=== PATIENT | female | born 1965 | race Caucasian/White ===

== ENCOUNTER 2024-01-14 15:41 | Observation (INO) | payer OTHER ==
[2024-01-14 16:15] LABS: Absolute Neutrophil Ct (ANC) 8.06 x10^3/uL (1.56-6.13); BASOPHIL % 0.2 % (0.1-1.2); Basophil (Absolute #) 0.02 x10^3/uL (0.01-0.08); Eosinophil % 0.3 % (0.7-5.8); Eosinophil (Absolute #) 0.03 x10^3/uL (0.04-0.36); Hematocrit 37.9 % (34.1-44.9); Hemoglobin 13.1 g/dL (11.2-15.7); IMMATURE GRAN # 0.03 x10^3u/L (0.001-0.031); IMMATURE GRAN % 0.3 % (0.001-0.429); Lymphocyte (Absolute #) 1.71 x10^3/uL (1.18-3.74); Mean Cell Volume 87.7 fL (79.4-94.8); Mean Corpuscular Hemoglobin 30.3 pg (25.6-32.2); Mean Corpuscular Hgb Concent. 34.6 g/dL (32.2-35.5); Mean Platelet Volume 10.2 fL (9.4-12.3); Monocyte (Absolute #) 0.87 x10^3/uL (0.24-0.86); Monocytes % 8.1 % (4.7-12.5); Neutrophil % 75.1 % (34.0-71.1); Platelet Count 281 x10^3/uL (182-369); Red Blood Count 4.32 x10^6/uL (3.93-5.22); Red Cell Distribution Width 12.7 % (11.7-14.4); White Blood Count 10.7 x10^3/uL (3.98-10.04)
[2024-01-14] MEDS ORDERED: DUONEB 0.5-3 MG/3 ml Neb IH ONE (16:17)
[2024-01-14] MEDS: DUONEB 0.5-3 MG/3 ml Neb IH ONE (16:18)
[2024-01-14 16:20] LABS: ALBUMIN 4.5 g/dL (3.5-5.0); BILIRUBIN,TOTAL 1.4 mg/dL (0.2-1.3); Calcium 9.3 mg/dL (8.4-10.2); Creatinine 1 0.83 mg/dL (0.52-1.04); EST GLOMERULAR FILTRATION RATE 81.7 ML/MIN; MAGNESIUM 2.1 mg/dL (1.6-2.3); Total Protein 8.5 g/dL (6.3-8.2)
[2024-01-14 16:24] LABS: Potassium 2.4 mmol/L (3.5-5.1)
--- NOTE | 2024-01-14 16:24 | ERPHSYRPT ---
- History of Present Illness Time Seen by Provider: 01/14/24 16:07 Source: patient Exam Limitations: no limitations Patient Subjective Stated Complaint: C/O cough for a week Triage Nursing Assessment: Patient ambulated back to ER. She is alert and oriented; anxious. Rapid talking, no SOB. She has a forceful, dry, non- productive cough. Skin is warm to touch; afebrile at this time. CASANDRA CHEN. Physician History: 58 years old female with history of tachyarrhythmias on metoprolol, hypertension presented in the ER with cough congestion symptoms for almost 1 week. Patient reports she has a dry hacking cough and feels gurgling sensation in the chest but is unable to cough it out. Patient denies any chest pain but noticed some palpitations/racing of the heart. Patient also reports subjective feeling of fever and chills which improves with taking Tylenol ibuprofen. Denies any Allergies/Adverse Reactions: No Known Drug Allergies Allergy (Verified 01/14/24 15:45) Home Medications: Hydrochlorothiazide 25 mg [hydroDIURIL 25 MG] 25 mg PO DAILY 01/14/24 [History] Metoprolol Tartrate [Lopressor] 100 mg PO BID 01/14/24 [History] Hx Tetanus, Diphtheria Vaccination/Date Given: Yes Hx Influenza Vaccination/Date Given: No Hx Pneumococcal Vaccination/Date Given: No Immunizations Up to Date: Yes Travel Risk - International Travel Have you traveled outside of the country in past 3 weeks: No - Emerging Infectious Disease Are you exhibiting symptoms associated with any current EIDs: Yes Symptoms: Cough: New Onset, Fever, Headaches/Body Aches/ - Past Medical History Pertinent Past Medical History: Yes Neurological History: No Pertinent History ENT History: No Pertinent History Cardiac History: Hypertension Respiratory History: No Pertinent History Endocrine Medical History: Other Musculoskeletal History: Fractures Psycho-Social History: Anxiety, Bipolar, Depression, Other Other Medical History: "Electrical heart irregularities", thyroid goiter, PTSD - Past Surgical History Past Surgical History: Yes Cardiac: No Pertinent History Gastrointestinal: No Pertinent History Female Surgical History: Hysterectomy Other Surgical History: partial thyroid removal - Social History Smoking Status: Former smoker Drug Use: none - Social Determinants of Health Will the patient participate in the screening: Yes Do you worry about a steady place to live?: No Do you have any problems with any of the following?: No known problems In the past 12 months,have you had to go without utilities?: No Transportation Issues: No Has anyone in your support network made you feel unsafe?: No Have you or anyone in your house had to go without enough: No - Nursing Vital Signs Nursing Vital Signs: Initial Vital Signs Temperature 98.9 F 01/14/24 15:41 Pain Scale Pain Intensity 0 - Physical Exam SpO2: 96 - Course EKG Interpreted by Me: RATE (94), Sinus Rhythm, NORMAL AXIS, prolonged QT interval, Non-specific ST Changes Ordered Tests: Active Orders 24 hr Category Date Time Status Telemetry q4h Care 01/14/24 16:36 Active CHEST 1 VIEW (PORTABLE) Stat Exams 01/14/24 15:59 Completed BLOOD CULTURE Stat Lab 01/14/24 17:22 Ordered CBC W DIFF Stat Lab 01/14/24 16:00 Completed CMP Stat Lab 01/14/24 16:00 Completed Lactic Acid Stat Lab 01/14/24 16:25 Completed MAGNESIUM Stat Lab 01/14/24 16:00 Completed NT PRO BNPII Stat Lab 01/14/24 16:00 Completed TROPONIN Q4H Lab 01/14/24 16:00 Completed TROPONIN Q4H Lab 01/14/24 20:15 Ordered TROPONIN Q4H Lab 01/15/24 00:15 Ordered Respiratory Therapy Assessment DAILY RT 01/14/24 16:22 Active Transfer Order Routine Transfer 01/14/24 Ordered Medication Summary Generic Name Dose Route Start Last Admin Trade Name Freq PRN Reason Stop Dose Admin Potassium Chloride 20 meq in 100 mls @ 50 mls/hr 01/14/24 16:45 01/14/24 16:41 Potassium Chloride 20 Meq In Water 100ml IV 01/14/24 20:44 50 mls/hr Q2H EVELIA Administration Sodium Chloride 1,000 mls @ 125 mls/hr 01/14/24 16:45 01/14/24 16:41 Sodium Chloride 0.9% 1000 Ml IV 02/13/24 16:44 125 mls/hr .Q8H EVELIA Administration Azithromycin 500 mg in 250 mls @ 250 mls/hr 01/14/24 17:21 01/14/24 17:38 Zithromax 500 Mg/ 250 Ml Nacl Premix IV 01/14/24 18:20 250 mls/hr STAT STA 250 mls/hr Administration Ceftriaxone Sodium 2 gm in 100 mls @ 200 mls/hr 01/14/24 17:21 01/14/24 17:37 Rocephin 2 Gm/100 Ml Nacl IV 01/14/24 17:50 200 mls/hr STAT ONE 200 mls/hr Administration Discontinued Medications Generic Name Dose Route Start Last Admin Trade Name Otoniel PRN Reason Stop Dose Admin Albuterol/Ipratropium 3 ml 01/14/24 16:07 01/14/24 16:18 Ipratropium/Albuterol Sulfate 3 Ml Ampul.Neb IH 01/14/24 16:08 3 ml STAT ONE Administration Albuterol/Ipratropium Confirm 01/14/24 16:17 Ipratropium/Albuterol Sulfate 3 Ml Ampul.Neb Administered 01/14/24 16:18 Dose 3 ml IH .STK-MED ONE Azithromycin Confirm 01/14/24 17:36 Zithromax 500 Mg/ 250 Ml Nacl Premix Administered 01/14/24 17:37 Dose 500 mg in 250 mls @ ud IV .STK-MED ONE Ceftriaxone Sodium Confirm 01/14/24 17:36 Rocephin 2 Gm/100 Ml Nacl Administered 01/14/24 17:37 Dose 2 gm in 100 mls @ ud IV .STK-MED ONE Potassium Chloride 40 meq 01/14/24 16:36 01/14/24 16:41 Potassium Chloride Tab 10 Meq Tab PO 01/14/24 16:37 40 meq STAT ONE Administration Potassium Chloride Confirm 01/14/24 16:40 Potassium Chloride Tab 10 Meq Tab Administered 01/14/24 16:41 Dose 40 meq .ROUTE .STK-MED ONE Lab/Rad Data: Laboratory Result Diagrams 01/14/24 16:00 01/14/24 16:00 Laboratory Results 01/14/24 01/14/24 01/14/24 Range/Units 16:25 16:00 16:00 WBC (3.98-10.04) x10^3/uL RBC (3.93-5.22) x10^6/uL Hgb (11.2-15.7) g/dL Hct (34.1-44.9) % MCV (79.4-94.8) fL MCH (25.6-32.2) pg MCHC (32.2-35.5) g/dL RDW (11.7-14.4) % Plt Count (182-369) x10^3/uL MPV (9.4-12.3) fL Gran % (34.0-71.1) % Immature Gran % (Auto) (0.001-0.429) % Nucleat RBC Rel Count (0.00-0.2) % Eos # (Auto) (0.04-0.36) x10^3/uL Immature Gran # (Auto) (0.001-0.031) x10^3u/L Absolute Lymphs (auto) (1.18-3.74) x10^3/uL Absolute Monos (auto) (0.24-0.86) x10^3/uL Absolute Nucleated RBC (0.00-0.012) x10^3u/L Lymphocytes % (19.3-51.7) % Monocytes % (4.7-12.5) % Eosinophils % (0.7-5.8) % Basophils % (0.1-1.2) % Absolute Granulocytes (1.56-6.13) x10^3/uL Basophils # (0.01-0.08) x10^3/uL Sodium (135-145) mmol/L Potassium (3.5-5.1) mmol/L Chloride (98-107) mmol/L Carbon Dioxide (22-30) mmol/L Anion Gap (5-15) MEQ/L BUN (7-17) mg/dL Creatinine (0.52-1.04) mg/dL Estimated GFR ML/MIN Glucose (74-106) mg/dL Lactic Acid 1.3 (0.4-2.0) Calcium (8.4-10.2) mg/dL Magnesium (1.6-2.3) mg/dL Total Bilirubin (0.2-1.3) mg/dL AST (14-36) U/L ALT (0-35) U/L Alkaline Phosphatase (38-126) U/L Troponin I < 0.012 (0.000-0.033) ng/mL NT-Pro-B Natriuret Pep 146 (<300) pg/mL Serum Total Protein (6.3-8.2) g/dL Albumin (3.5-5.0) g/dL Influenza Type A Ag (NEGATIVE) Influenza Type B Ag (NEGATIVE) RSV (PCR) (NEGATIVE) SARS-CoV-2 (PCR) (NEGATIVE) 01/14/24 01/14/24 01/14/24 Range/Units 16:00 16:00 15:58 WBC 10.7 H (3.98-10.04) x10^3/uL RBC 4.32 (3.93-5.22) x10^6/uL Hgb 13.1 (11.2-15.7) g/dL Hct 37.9 (34.1-44.9) % MCV 87.7 (79.4-94.8) fL MCH 30.3 (25.6-32.2) pg MCHC 34.6 (32.2-35.5) g/dL RDW 12.7 (11.7-14.4) % Plt Count 281 (182-369) x10^3/uL MPV 10.2 (9.4-12.3) fL Gran % 75.1 H (34.0-71.1) % Immature Gran % (Auto) 0.3 (0.001-0.429) % Nucleat RBC Rel Count 0.0 (0.00-0.2) % Eos # (Auto) 0.03 L (0.04-0.36) x10^3/uL Immature Gran # (Auto) 0.03 (0.001-0.031) x10^3u/L Absolute Lymphs (auto) 1.71 (1.18-3.74) x10^3/uL Absolute Monos (auto) 0.87 H (0.24-0.86) x10^3/uL Absolute Nucleated RBC 0.00 (0.00-0.012) x10^3u/L Lymphocytes % 16.0 L (19.3-51.7) % Monocytes % 8.1 (4.7-12.5) % Eosinophils % 0.3 L (0.7-5.8) % Basophils % 0.2 (0.1-1.2) % Absolute Granulocytes 8.06 H (1.56-6.13) x10^3/uL Basophils # 0.02 (0.01-0.08) x10^3/uL Sodium 136 (135-145) mmol/L Potassium 2.4 L* (3.5-5.1) mmol/L Chloride 92 L (98-107) mmol/L Carbon Dioxide 31 H (22-30) mmol/L Anion Gap 15.0 (5-15) MEQ/L BUN 17 (7-17) mg/dL Creatinine 0.83 (0.52-1.04) mg/dL Estimated GFR 81.7 ML/MIN Glucose 121 H (74-106) mg/dL Lactic Acid (0.4-2.0) Calcium 9.3 (8.4-10.2) mg/dL Magnesium 2.1 (1.6-2.3) mg/dL Total Bilirubin 1.40 H (0.2-1.3) mg/dL AST 37 H (14-36) U/L ALT 23 (0-35) U/L Alkaline Phosphatase 83 (38-126) U/L Troponin I (0.000-0.033) ng/mL NT-Pro-B Natriuret Pep (<300) pg/mL Serum Total Protein 8.5 H (6.3-8.2) g/dL Albumin 4.5 (3.5-5.0) g/dL Influenza Type A Ag NEGATIVE (NEGATIVE) Influenza Type B Ag NEGATIVE (NEGATIVE) RSV (PCR) NEGATIVE (NEGATIVE) SARS-CoV-2 (PCR) NEGATIVE (NEGATIVE) - Progress Progress: improved, re-examined Air Movement: fair Progress Note: 01/14/24 17:23 58 years old is evaluated in the ER for cough congestion symptoms for 1 week with progressive worsening and also having some palpitations. Patient is having inconsistent PVCs on the EKG but no ST elevations. She is given DuoNeb, on reevaluation she is feeling better but her oxygen is dropping in upper 80s, placed on 2 L oxygen with saturation in mid 90s now. Chest x-ray showed focal haziness/opacities which I believe patient is developing pneumonia. Workup otherwise showed white count of 10, normal lactate, chemistries with potassium of 2.4 and magnesium of 2.1. Patient is started on oral and IV potassium replacement. I believe patient would benefit with observation admission. She is also given a dose of Rocephin and Zithromax. Discussed with Dr. Marte and patient is being admitted. Shared the results of workup with patient and family and plan of admission which they understand and agree. Blood Culture(s) Obtained: Yes Antibiotics given: Yes Discussed with Dr.: Other (Dr. Marte) Will see patient in: hospital (observation) Counseled pt/family regarding: lab results, diagnosis, rad results Medical Desision Making - Independent Historian Additional History obtained from: Child - Discussion of managment Care discussed with:: hospitalist Reviewed:: Test results Agreed on:: Treatment plan, place in obs Will see patient: in hospital - Diagnostic Testing Diagnostic test were ordered, analyzed, and reviewed by me: Yes Radiological Interpretation: Reviewed by me - Risk of complications The pt has a mod risk of morbidity or mortality based on: Need for prescription drug management The pt has a high risk of morbidity or mortality based on: Decision regarding hospitilization or escalation of hosp level of care - Departure Departure Disposition: Observation Clinical Impression: Hypokalemia, PVCs (premature ventricular contractions), Pneumonia Condition: Stable Critical Care Time: No Referrals: DOCTOR,NO FAMILY [Primary Care Provider] - Follow up/PCP as directed
[2024-01-14 16:34] LABS: INFLUENZA A NEGATIVE (NEGATIVE); INFLUENZA B NEGATIVE (NEGATIVE); RESPIRATORY SYNCTIAL VIRUS NEGATIVE (NEGATIVE); SARS-CoV-2 Xpert Express NEGATIVE (NEGATIVE)
[2024-01-14] MEDS ORDERED: Sodium Chloride 0.9% 1000 ML 1,000 ML ONE ×2 (16:40→23:21)
[2024-01-14] MEDS ORDERED: Klor Con ONE (16:40)
[2024-01-14] MEDS: POTASSIUM CHLORIDE 20 mEq IN WATER 100ML 20 MEQ/100 ML BAG IV SCH (16:41)
[2024-01-14] MEDS: Sodium Chloride 0.9% 1000 ML 1,000 ML IV SCH (16:41)
[2024-01-14] MEDS: Klor Con PO ONE ×2 (16:41→21:58)
--- NOTE | 2024-01-14 17:15 | XRAY ---
Indication: Cough. Comparison: None Portable chest demonstrates subtle hazy right base interstitial alveolar opacities. Remaining heart and lungs normal with a few incidental tiny calcified granulomas. Bony thorax intact.
[2024-01-14] MEDS ORDERED: ROCEPHIN 2 GM/100 ML NACL 2 GM/100 ML IVPB IV ONE (17:36)
[2024-01-14] MEDS ORDERED: Zithromax 500 MG/ 250 ML NaCl Premix 500 MG/250 ML IVPB IV ONE (17:36)
[2024-01-14] MEDS: ROCEPHIN 2 GM/100 ML NACL 2 GM/100 ML IVPB IV ONE (17:37)
[2024-01-14] MEDS: Zithromax 500 MG/ 250 ML NaCl Premix 500 MG/250 ML IVPB IV STA (17:38)
--- NOTE | 2024-01-14 21:17 | PCM.HP ---
History of Present Illness - Chief Complaint Chief Complaint: Hypokalemia, PNE, PVC Date: 01/14/24 History of Present Illness: Ms. RIVERA is a 58 year old female with a past medical history significant for hypertension and tachyarrhythmia who presents to the hospital with complaints of cough and palpitations. She was found to have multiple PVCs and her initial labs were notable for a potassium of 2.4. She takes HCTZ for her blood pressure and has also noted some diarrhea recently. She has been given IV/PO potassium replacement and has been recommended for admission. Her CXR demonstrated a right lower lobe infiltrate and she has been started on antibiotics. No fever/chills. No chest pain or shortness of breath, just a deep painful cough. No current nausea, vomiting or diarrhea. No dysuria, hematuria or urinary frequency. - Review of Systems Constitutional: No Fever, No Chills Eyes: No Vision Changes, No Double Vision Ears, Nose, & Throat: No Nose Discharge, No Sinus Drainage Respiratory: Cough, No Orthopnea, No Short Of Breath Cardiac: Palpitations, No Chest Pain Abdominal/Gastrointestinal: Nausea, Vomiting, Diarrhea, No Abdominal Pain Genitourinary Symptoms: No Dysuria, No Frequency, No Hematuria Musculoskeletal: No Arthralgias Skin: No Rash Neurological: No Dizziness, No Lethargy Psychological: No Suicidal Ideations Endocrine: No Polyuria, No Polydipsia Hematologic/Lymphatic: No Easy Bleeding Medications & Allergies Home Medications: Home Medication List Hydrochlorothiazide 25 mg [hydroDIURIL 25 MG] 25 mg PO DAILY 01/14/24 [History Confirmed 01/14/24] Metoprolol Tartrate [Lopressor] 100 mg PO BID 01/14/24 [History Confirmed 01/14/24] Allergies/Adverse Reactions: Allergies Allergy/AdvReac Type Severity Reaction Status Date / Time No Known Drug Allergies Allergy Verified 01/14/24 15:45 - Past Medical History Past Medical History: Yes Neurological History: No Pertinent History ENT History: No Pertinent History Cardiac History: Hypertension Respiratory History: No Pertinent History Endocrine Medical History: Other Musculoskelatal History: Fractures GI Medical History: No Pertinent History History: No Pertinent History Pyscho-Social History: Anxiety, Bipolar, Depression, Other Reproductive Disorders: No Pertinent History Comment: "Electrical heart irregularities", thyroid goiter, PTSD - Past Surgical History Past Surgical History: Yes Cardiac History: No Pertinent History GI Surgical History: No Pertinent History Female Surgical History: Hysterectomy Other Surgical History: partial thyroid removal - Social History Smoking Status: Former smoker Alcohol: None Drug Use: none - Social Determinants of Health Will the patient participate in the screening: Yes Do you worry about a steady place to live?: No Do you have any problems with any of the following?: No known problems In the past 12 months,have you had to go without utilities?: No Have you or anyone in your house had to go without enough: No Transportation Issues: No Has anyone in your support network made you feel unsafe?: No Does the patient want assistance with any of the above?: No - Physical Exam Vital Signs: Vital Signs - 24 hr Temp Pulse Resp BP BP Pulse Ox 01/14/24 20:00 99.4 F 94 H 16 109/74 94 L 01/14/24 19:52 94 H 16 94 L 01/14/24 19:35 99.4 F 89 18 109/74 93 L 01/14/24 18:13 89 100/66 95 01/14/24 17:48 96 01/14/24 17:00 90 16 115/82 95 01/14/24 16:30 88 16 107/84 93 L 01/14/24 16:22 88 16 95 01/14/24 16:00 89 19 146/91 93 L 01/14/24 15:47 90 16 138/103 96 01/14/24 15:41 98.9 F General Appearance: no apparent distress Neurologic Exam: alert Ears, Nose, Throat Exam: dry mucous membranes Neck Exam: supple Respiratory Exam: No respiratory distress Cardiovascular Exam: regular rate/rhythm Gastrointestinal/Abdomen Exam: soft Extremity Exam: No pedal edema, No swelling Skin Exam: normal color, No rash Results - Labs Lab/Micro Results: Lab Results-Last 24 Hours 01/14/24 01/14/24 01/14/24 Range/Units 15:58 16:00 16:00 WBC 10.7 H (3.98-10.04) x10^3/uL RBC 4.32 (3.93-5.22) x10^6/uL Hgb 13.1 (11.2-15.7) g/dL Hct 37.9 (34.1-44.9) % MCV 87.7 (79.4-94.8) fL MCH 30.3 (25.6-32.2) pg MCHC 34.6 (32.2-35.5) g/dL RDW 12.7 (11.7-14.4) % Plt Count 281 (182-369) x10^3/uL MPV 10.2 (9.4-12.3) fL Gran % 75.1 H (34.0-71.1) % Immature Gran % (Auto) 0.3 (0.001-0.429) % Nucleat RBC Rel Count 0.0 (0.00-0.2) % Eos # (Auto) 0.03 L (0.04-0.36) x10^3/uL Immature Gran # (Auto) 0.03 (0.001-0.031) x10^3u/L Absolute Lymphs (auto) 1.71 (1.18-3.74) x10^3/uL Absolute Monos (auto) 0.87 H (0.24-0.86) x10^3/uL Absolute Nucleated RBC 0.00 (0.00-0.012) x10^3u/L Lymphocytes % 16.0 L (19.3-51.7) % Monocytes % 8.1 (4.7-12.5) % Eosinophils % 0.3 L (0.7-5.8) % Basophils % 0.2 (0.1-1.2) % Absolute Granulocytes 8.06 H (1.56-6.13) x10^3/uL Basophils # 0.02 (0.01-0.08) x10^3/uL Sodium 136 (135-145) mmol/L Potassium 2.4 L* (3.5-5.1) mmol/L Chloride 92 L (98-107) mmol/L Carbon Dioxide 31 H (22-30) mmol/L Anion Gap 15.0 (5-15) MEQ/L BUN 17 (7-17) mg/dL Creatinine 0.83 (0.52-1.04) mg/dL Estimated GFR 81.7 ML/MIN Glucose 121 H (74-106) mg/dL Lactic Acid (0.4-2.0) Calcium 9.3 (8.4-10.2) mg/dL Magnesium 2.1 (1.6-2.3) mg/dL Total Bilirubin 1.40 H (0.2-1.3) mg/dL AST 37 H (14-36) U/L ALT 23 (0-35) U/L Alkaline Phosphatase 83 (38-126) U/L Troponin I (0.000-0.033) ng/mL NT-Pro-B Natriuret Pep (<300) pg/mL Serum Total Protein 8.5 H (6.3-8.2) g/dL Albumin 4.5 (3.5-5.0) g/dL Influenza Type A Ag NEGATIVE (NEGATIVE) Influenza Type B Ag NEGATIVE (NEGATIVE) RSV (PCR) NEGATIVE (NEGATIVE) SARS-CoV-2 (PCR) NEGATIVE (NEGATIVE) 01/14/24 01/14/24 01/14/24 Range/Units 16:00 16:00 16:25 WBC (3.98-10.04) x10^3/uL RBC (3.93-5.22) x10^6/uL Hgb (11.2-15.7) g/dL Hct (34.1-44.9) % MCV (79.4-94.8) fL MCH (25.6-32.2) pg MCHC (32.2-35.5) g/dL RDW (11.7-14.4) % Plt Count (182-369) x10^3/uL MPV (9.4-12.3) fL Gran % (34.0-71.1) % Immature Gran % (Auto) (0.001-0.429) % Nucleat RBC Rel Count (0.00-0.2) % Eos # (Auto) (0.04-0.36) x10^3/uL Immature Gran # (Auto) (0.001-0.031) x10^3u/L Absolute Lymphs (auto) (1.18-3.74) x10^3/uL Absolute Monos (auto) (0.24-0.86) x10^3/uL Absolute Nucleated RBC (0.00-0.012) x10^3u/L Lymphocytes % (19.3-51.7) % Monocytes % (4.7-12.5) % Eosinophils % (0.7-5.8) % Basophils % (0.1-1.2) % Absolute Granulocytes (1.56-6.13) x10^3/uL Basophils # (0.01-0.08) x10^3/uL Sodium (135-145) mmol/L Potassium (3.5-5.1) mmol/L Chloride (98-107) mmol/L Carbon Dioxide (22-30) mmol/L Anion Gap (5-15) MEQ/L BUN (7-17) mg/dL Creatinine (0.52-1.04) mg/dL Estimated GFR ML/MIN Glucose (74-106) mg/dL Lactic Acid 1.3 (0.4-2.0) Calcium (8.4-10.2) mg/dL Magnesium (1.6-2.3) mg/dL Total Bilirubin (0.2-1.3) mg/dL AST (14-36) U/L ALT (0-35) U/L Alkaline Phosphatase (38-126) U/L Troponin I < 0.012 (0.000-0.033) ng/mL NT-Pro-B Natriuret Pep 146 (<300) pg/mL Serum Total Protein (6.3-8.2) g/dL Albumin (3.5-5.0) g/dL Influenza Type A Ag (NEGATIVE) Influenza Type B Ag (NEGATIVE) RSV (PCR) (NEGATIVE) SARS-CoV-2 (PCR) (NEGATIVE) 01/14/24 Range/Units 20:30 WBC (3.98-10.04) x10^3/uL RBC (3.93-5.22) x10^6/uL Hgb (11.2-15.7) g/dL Hct (34.1-44.9) % MCV (79.4-94.8) fL MCH (25.6-32.2) pg MCHC (32.2-35.5) g/dL RDW (11.7-14.4) % Plt Count (182-369) x10^3/uL MPV (9.4-12.3) fL Gran % (34.0-71.1) % Immature Gran % (Auto) (0.001-0.429) % Nucleat RBC Rel Count (0.00-0.2) % Eos # (Auto) (0.04-0.36) x10^3/uL Immature Gran # (Auto) (0.001-0.031) x10^3u/L Absolute Lymphs (auto) (1.18-3.74) x10^3/uL Absolute Monos (auto) (0.24-0.86) x10^3/uL Absolute Nucleated RBC (0.00-0.012) x10^3u/L Lymphocytes % (19.3-51.7) % Monocytes % (4.7-12.5) % Eosinophils % (0.7-5.8) % Basophils % (0.1-1.2) % Absolute Granulocytes (1.56-6.13) x10^3/uL Basophils # (0.01-0.08) x10^3/uL Sodium (135-145) mmol/L Potassium (3.5-5.1) mmol/L Chloride (98-107) mmol/L Carbon Dioxide (22-30) mmol/L Anion Gap (5-15) MEQ/L BUN (7-17) mg/dL Creatinine (0.52-1.04) mg/dL Estimated GFR ML/MIN Glucose (74-106) mg/dL Lactic Acid (0.4-2.0) Calcium (8.4-10.2) mg/dL Magnesium (1.6-2.3) mg/dL Total Bilirubin (0.2-1.3) mg/dL AST (14-36) U/L ALT (0-35) U/L Alkaline Phosphatase (38-126) U/L Troponin I < 0.012 (0.000-0.033) ng/mL NT-Pro-B Natriuret Pep (<300) pg/mL Serum Total Protein (6.3-8.2) g/dL Albumin (3.5-5.0) g/dL Influenza Type A Ag (NEGATIVE) Influenza Type B Ag (NEGATIVE) RSV (PCR) (NEGATIVE) SARS-CoV-2 (PCR) (NEGATIVE) - Radiology Impressions Radiology Exams & Impressions: Radiology Procedures Category Date Time Status CHEST 1 VIEW (PORTABLE) Stat Exams 01/14/24 15:59 Completed - Other Procedures and Tests Respiratory Therapy 01/14/24 16:22 Respiratory Therapy Assessment DAILY 01/14/24 18:28 Oxygen Nasal Cannula 2 lpm Assessment/Plan (1) Hypokalemia Current Visit: Yes Status: Acute Assessment & Plan: Likely from combination of thiazide diuretic and GI losses with N/V/D 1. Replete K, check Mg 2. Hold HCTZ 3. Encourage PO intake, will defer IVFs 4. Telemetry 5. DVT/GI prophylaxis 6. Watch electrolytes closely Code(s): E87.6 - HYPOKALEMIA (2) Pneumonia Current Visit: Yes Status: Acute Qualifiers: Pneumonia type: due to unspecified organism Laterality: right Lung location: lower lobe of lung Qualified Code(s): J18.9 - Pneumonia, unspecified organism Assessment & Plan: Pneumonia likely bacterial 1. Empiric antibiotics 2. Sputum culture 3. Monitor O2 sats 4. Defer albuterol nebs until K > 3 Code(s): J18.9 - PNEUMONIA, UNSPECIFIED ORGANISM (3) Essential (primary) hypertension Current Visit: Yes Status: Acute Assessment & Plan: Blood pressure under reasonable control 1. Continue Metoprolol 2. Will hold HCTZ 3. Monitor blood pressure readings Code(s): I10 - ESSENTIAL (PRIMARY) HYPERTENSION Telemedicine Encounter - Telemedicine Encounter Telemedicine Encounter: "The entirety of this encounter was performed via Telemedicine" This visit was performed using real-time audio and video connection between my location and thepatients locationwith the assistance of a surrogateat the patients location. Written or verbal consent was obtained from the patient/guardian to perform [facility]. Any patient questions regarding the telemedicine interaction were answered.
[2024-01-14] MEDS ORDERED: TYLENOL 325 MG PO PRN (21:20)
[2024-01-14 21:50] LABS: ALBUMIN 3.9 g/dL (3.5-5.0); ANION GAP 13.9 MEQ/L (5-15); Calcium 8.6 mg/dL (8.4-10.2); Creatinine 1 0.8 mg/dL (0.52-1.04); EST GLOMERULAR FILTRATION RATE 85.4 ML/MIN; PHOSPHOROUS 2.7 mg/dL (2.5-4.5)
[2024-01-14] MEDS ORDERED: Lopressor 50 MG ONE (21:51)
[2024-01-14 21:53] LABS: Potassium 2.7 mmol/L (3.5-5.1)
[2024-01-14] MEDS: NON-FORMULARY ITEM (Metoprolol Tartrate [Lopressor] 100 MG Tablet) PO SCH (22:05)
[2024-01-15] MEDS ORDERED: DUONEB 0.5-3 MG/3 ml Neb IH ONE (00:10)
[2024-01-15] MEDS: DUONEB 0.5-3 MG/3 ml Neb IH SCH (00:12)
--- NOTE | 2024-01-15 05:10 | PCM.NOTE ---
Date and Time: 01/15/24 0503 Subjective Assessment: Ms Walls is a 58 year old female with a pmhx of tachyarrhythmias on metoprolol and hypertension who presented to ED 01/14/24 with a week history of subjective fever/chills, a dry-hacking cough and the sensation of palpitations/racing heart. Upon arrival vitals stable - patient was noted with spo2 levels dropping into the 80s and placed on 2L oxygen. PVCs on EKG but no ST elevations. Initial trops negative. CXR demonstrates subtle hazy right base interstitial alveolar opacities. Lab findings with mild leukocytosis and hypokalemia, TBILLI and AST also elevated. Respiratory panel negative . Patient given potassium, ceftriaxone, azithromycin, and duoneb in ED. Admit for pneumonia, hypokalemia. Plan continued abx and resp treatments as well as electrolyte replenishment. 01/14: Met with patient bedside. Endorses improved dypnea now on RA and weakness. Lung sounds with crackles and wheezing. Potassium level still low at 2.6 this morning. Denies fever, cp, abdominal pain, HASTINGS, dizziness, N/V/D. - Review of Systems Constitutional: Weakness Eyes: No Symptoms Ears, Nose, & Throat: No Symptoms Respiratory: Cough, Short Of Breath Cardiac: No Symptoms Abdominal/Gastrointestinal: No Symptoms Genitourinary Symptoms: No Symptoms Musculoskeletal: No Symptoms Skin: No Symptoms Neurological: No Symptoms Psychological: No Symptoms Endocrine: No Symptoms Hematologic/Lymphatic: No Symptoms Immunological/Allergic: No Symptoms Objective Exam General Appearance: no apparent distress Neurologic Exam: alert, oriented x 3, cooperative Skin Exam: normal color Eye Exam: PERRL Ears, Nose, Throat Exam: normal ENT inspection Neck Exam: normal inspection Respiratory Exam: crackles/rales, wheezing Cardiovascular Exam: regular rate/rhythm, normal heart sounds Gastrointestinal/Abdomen Exam: soft, normal bowel sounds Extremity Exam: normal inspection Back Exam: normal inspection Pelvic Exam: deferred Rectal Exam: deferred Objective Data Vital Signs: Vital Signs - 24 hr Temp Pulse Resp BP BP Pulse Ox 01/15/24 04:00 98.4 F 80 19 102/55 96 01/15/24 00:13 83 16 91 L 01/15/24 00:00 16 01/14/24 23:39 99.4 F 82 16 93/50 91 L 01/14/24 20:00 99.4 F 94 H 16 109/74 94 L 01/14/24 19:52 94 H 16 94 L 01/14/24 19:35 99.4 F 89 18 109/74 93 L 01/14/24 18:13 89 100/66 95 01/14/24 17:48 96 01/14/24 17:00 90 16 115/82 95 01/14/24 16:30 88 16 107/84 93 L 01/14/24 16:22 88 16 95 01/14/24 16:00 89 19 146/91 93 L 01/14/24 15:47 90 16 138/103 96 01/14/24 15:41 98.9 F Pain Assessment - Last Documented Pain Intensity 0 Intake and Output: Intake & Output 01/12/24 01/13/24 01/14/24 01/15/24 11:59 11:59 11:59 11:59 Intake Total 2451 Balance 2451 Weight 88.8 kg Lab Results: Lab Results-Last 24 Hours 01/14/24 01/14/24 01/14/24 Range/Units 15:58 16:00 16:00 WBC 10.7 H (3.98-10.04) x10^3/uL RBC 4.32 (3.93-5.22) x10^6/uL Hgb 13.1 (11.2-15.7) g/dL Hct 37.9 (34.1-44.9) % MCV 87.7 (79.4-94.8) fL MCH 30.3 (25.6-32.2) pg MCHC 34.6 (32.2-35.5) g/dL RDW 12.7 (11.7-14.4) % Plt Count 281 (182-369) x10^3/uL MPV 10.2 (9.4-12.3) fL Gran % 75.1 H (34.0-71.1) % Immature Gran % (Auto) 0.3 (0.001-0.429) % Nucleat RBC Rel Count 0.0 (0.00-0.2) % Eos # (Auto) 0.03 L (0.04-0.36) x10^3/uL Immature Gran # (Auto) 0.03 (0.001-0.031) x10^3u/L Absolute Lymphs (auto) 1.71 (1.18-3.74) x10^3/uL Absolute Monos (auto) 0.87 H (0.24-0.86) x10^3/uL Absolute Nucleated RBC 0.00 (0.00-0.012) x10^3u/L Lymphocytes % 16.0 L (19.3-51.7) % Monocytes % 8.1 (4.7-12.5) % Eosinophils % 0.3 L (0.7-5.8) % Basophils % 0.2 (0.1-1.2) % Absolute Granulocytes 8.06 H (1.56-6.13) x10^3/uL Basophils # 0.02 (0.01-0.08) x10^3/uL Sodium 136 (135-145) mmol/L Potassium 2.4 L* (3.5-5.1) mmol/L Chloride 92 L (98-107) mmol/L Carbon Dioxide 31 H (22-30) mmol/L Anion Gap 15.0 (5-15) MEQ/L BUN 17 (7-17) mg/dL Creatinine 0.83 (0.52-1.04) mg/dL Estimated GFR 81.7 ML/MIN Glucose 121 H (74-106) mg/dL Lactic Acid (0.4-2.0) Calcium 9.3 (8.4-10.2) mg/dL Phosphorus (2.5-4.5) mg/dL Magnesium 2.1 (1.6-2.3) mg/dL Total Bilirubin 1.40 H (0.2-1.3) mg/dL AST 37 H (14-36) U/L ALT 23 (0-35) U/L Alkaline Phosphatase 83 (38-126) U/L Troponin I (0.000-0.033) ng/mL NT-Pro-B Natriuret Pep (<300) pg/mL Serum Total Protein 8.5 H (6.3-8.2) g/dL Albumin 4.5 (3.5-5.0) g/dL Influenza Type A Ag NEGATIVE (NEGATIVE) Influenza Type B Ag NEGATIVE (NEGATIVE) RSV (PCR) NEGATIVE (NEGATIVE) SARS-CoV-2 (PCR) NEGATIVE (NEGATIVE) 01/14/24 01/14/24 01/14/24 Range/Units 16:00 16:00 16:25 WBC (3.98-10.04) x10^3/uL RBC (3.93-5.22) x10^6/uL Hgb (11.2-15.7) g/dL Hct (34.1-44.9) % MCV (79.4-94.8) fL MCH (25.6-32.2) pg MCHC (32.2-35.5) g/dL RDW (11.7-14.4) % Plt Count (182-369) x10^3/uL MPV (9.4-12.3) fL Gran % (34.0-71.1) % Immature Gran % (Auto) (0.001-0.429) % Nucleat RBC Rel Count (0.00-0.2) % Eos # (Auto) (0.04-0.36) x10^3/uL Immature Gran # (Auto) (0.001-0.031) x10^3u/L Absolute Lymphs (auto) (1.18-3.74) x10^3/uL Absolute Monos (auto) (0.24-0.86) x10^3/uL Absolute Nucleated RBC (0.00-0.012) x10^3u/L Lymphocytes % (19.3-51.7) % Monocytes % (4.7-12.5) % Eosinophils % (0.7-5.8) % Basophils % (0.1-1.2) % Absolute Granulocytes (1.56-6.13) x10^3/uL Basophils # (0.01-0.08) x10^3/uL Sodium (135-145) mmol/L Potassium (3.5-5.1) mmol/L Chloride (98-107) mmol/L Carbon Dioxide (22-30) mmol/L Anion Gap (5-15) MEQ/L BUN (7-17) mg/dL Creatinine (0.52-1.04) mg/dL Estimated GFR ML/MIN Glucose (74-106) mg/dL Lactic Acid 1.3 (0.4-2.0) Calcium (8.4-10.2) mg/dL Phosphorus (2.5-4.5) mg/dL Magnesium (1.6-2.3) mg/dL Total Bilirubin (0.2-1.3) mg/dL AST (14-36) U/L ALT (0-35) U/L Alkaline Phosphatase (38-126) U/L Troponin I < 0.012 (0.000-0.033) ng/mL NT-Pro-B Natriuret Pep 146 (<300) pg/mL Serum Total Protein (6.3-8.2) g/dL Albumin (3.5-5.0) g/dL Influenza Type A Ag (NEGATIVE) Influenza Type B Ag (NEGATIVE) RSV (PCR) (NEGATIVE) SARS-CoV-2 (PCR) (NEGATIVE) 01/14/24 01/14/24 01/14/24 Range/Units 20:30 20:30 21:54 WBC (3.98-10.04) x10^3/uL RBC (3.93-5.22) x10^6/uL Hgb (11.2-15.7) g/dL Hct (34.1-44.9) % MCV (79.4-94.8) fL MCH (25.6-32.2) pg MCHC (32.2-35.5) g/dL RDW (11.7-14.4) % Plt Count (182-369) x10^3/uL MPV (9.4-12.3) fL Gran % (34.0-71.1) % Immature Gran % (Auto) (0.001-0.429) % Nucleat RBC Rel Count (0.00-0.2) % Eos # (Auto) (0.04-0.36) x10^3/uL Immature Gran # (Auto) (0.001-0.031) x10^3u/L Absolute Lymphs (auto) (1.18-3.74) x10^3/uL Absolute Monos (auto) (0.24-0.86) x10^3/uL Absolute Nucleated RBC (0.00-0.012) x10^3u/L Lymphocytes % (19.3-51.7) % Monocytes % (4.7-12.5) % Eosinophils % (0.7-5.8) % Basophils % (0.1-1.2) % Absolute Granulocytes (1.56-6.13) x10^3/uL Basophils # (0.01-0.08) x10^3/uL Sodium 137 (135-145) mmol/L Potassium 2.7 L* (3.5-5.1) mmol/L Chloride 98 (98-107) mmol/L Carbon Dioxide 28 (22-30) mmol/L Anion Gap 13.9 (5-15) MEQ/L BUN 16 (7-17) mg/dL Creatinine 0.80 (0.52-1.04) mg/dL Estimated GFR 85.4 ML/MIN Glucose 132 H (74-106) mg/dL Lactic Acid (0.4-2.0) Calcium 8.6 (8.4-10.2) mg/dL Phosphorus 2.7 (2.5-4.5) mg/dL Magnesium 2.0 (1.6-2.3) mg/dL Total Bilirubin (0.2-1.3) mg/dL AST (14-36) U/L ALT (0-35) U/L Alkaline Phosphatase (38-126) U/L Troponin I < 0.012 (0.000-0.033) ng/mL NT-Pro-B Natriuret Pep (<300) pg/mL Serum Total Protein (6.3-8.2) g/dL Albumin 3.9 (3.5-5.0) g/dL Influenza Type A Ag (NEGATIVE) Influenza Type B Ag (NEGATIVE) RSV (PCR) (NEGATIVE) SARS-CoV-2 (PCR) (NEGATIVE) 01/15/24 01/15/24 Range/Units 00:05 00:05 WBC (3.98-10.04) x10^3/uL RBC (3.93-5.22) x10^6/uL Hgb (11.2-15.7) g/dL Hct (34.1-44.9) % MCV (79.4-94.8) fL MCH (25.6-32.2) pg MCHC (32.2-35.5) g/dL RDW (11.7-14.4) % Plt Count (182-369) x10^3/uL MPV (9.4-12.3) fL Gran % (34.0-71.1) % Immature Gran % (Auto) (0.001-0.429) % Nucleat RBC Rel Count (0.00-0.2) % Eos # (Auto) (0.04-0.36) x10^3/uL Immature Gran # (Auto) (0.001-0.031) x10^3u/L Absolute Lymphs (auto) (1.18-3.74) x10^3/uL Absolute Monos (auto) (0.24-0.86) x10^3/uL Absolute Nucleated RBC (0.00-0.012) x10^3u/L Lymphocytes % (19.3-51.7) % Monocytes % (4.7-12.5) % Eosinophils % (0.7-5.8) % Basophils % (0.1-1.2) % Absolute Granulocytes (1.56-6.13) x10^3/uL Basophils # (0.01-0.08) x10^3/uL Sodium (135-145) mmol/L Potassium 3.1 L (3.5-5.1) mmol/L Chloride (98-107) mmol/L Carbon Dioxide (22-30) mmol/L Anion Gap (5-15) MEQ/L BUN (7-17) mg/dL Creatinine (0.52-1.04) mg/dL Estimated GFR ML/MIN Glucose (74-106) mg/dL Lactic Acid (0.4-2.0) Calcium (8.4-10.2) mg/dL Phosphorus (2.5-4.5) mg/dL Magnesium (1.6-2.3) mg/dL Total Bilirubin (0.2-1.3) mg/dL AST (14-36) U/L ALT (0-35) U/L Alkaline Phosphatase (38-126) U/L Troponin I < 0.012 (0.000-0.033) ng/mL NT-Pro-B Natriuret Pep (<300) pg/mL Serum Total Protein (6.3-8.2) g/dL Albumin (3.5-5.0) g/dL Influenza Type A Ag (NEGATIVE) Influenza Type B Ag (NEGATIVE) RSV (PCR) (NEGATIVE) SARS-CoV-2 (PCR) (NEGATIVE) Radiology Exams: Radiology Procedures Category Date Time Status CHEST 1 VIEW (PORTABLE) Stat Exams 01/14/24 15:59 Completed Assessment/Plan (1) Pneumonia Current Visit: Yes Status: Acute Qualifiers: Pneumonia type: due to unspecified organism Laterality: right Lung location: lower lobe of lung Qualified Code(s): J18.9 - Pneumonia, unspecified organism Assessment & Plan: -CXR demonstrates subtle hazy right base interstitial alveolar opacities -Supplemental oxygen with goal spo2 >92% -ceftriaxone/azithromycin -nebs/inh prn -prednisone 20mg bid Code(s): J18.9 - PNEUMONIA, UNSPECIFIED ORGANISM (2) Hypokalemia Current Visit: Yes Status: Acute Assessment & Plan: -potassium at 2.6 despite replenishment- 40 meq ordered this morning, will recheck in 2 hours -MG wnl -hold hctz -tele Code(s): E87.6 - HYPOKALEMIA (3) Essential (primary) hypertension Current Visit: Yes Status: Acute Assessment & Plan: -stable, continue to hold hctz, continue metoprolol -monitor closely Code(s): I10 - ESSENTIAL (PRIMARY) HYPERTENSION
[2024-01-15 05:46] LABS: ALBUMIN 3.8 g/dL (3.5-5.0); ANION GAP 12.9 MEQ/L (5-15); BILIRUBIN,TOTAL 0.7 mg/dL (0.2-1.3); Calcium 8.2 mg/dL (8.4-10.2); Creatinine 1 0.64 mg/dL (0.52-1.04); EST GLOMERULAR FILTRATION RATE 102.4 ML/MIN; MAGNESIUM 2.1 mg/dL (1.6-2.3); Total Protein 7.1 g/dL (6.3-8.2)
[2024-01-15 06:00] LABS: Potassium 2.6 mmol/L (3.5-5.1)
[2024-01-15] MEDS: Klor Con PO ONE ×2 (06:12→10:31)
[2024-01-15 07:43] LABS: BASOPHIL % 0.2 % (0.1-1.2); Basophil (Absolute #) 0.01 x10^3/uL (0.01-0.08); Eosinophil % 0.4 % (0.7-5.8); Eosinophil (Absolute #) 0.02 x10^3/uL (0.04-0.36); Hematocrit 33.1 % (34.1-44.9); IMMATURE GRAN # 0.02 x10^3u/L (0.001-0.031); IMMATURE GRAN % 0.4 % (0.001-0.429); Lymphocyte (Absolute #) 1.02 x10^3/uL (1.18-3.74); Mean Cell Volume 89.7 fL (79.4-94.8); Mean Corpuscular Hemoglobin 29.8 pg (25.6-32.2); Mean Corpuscular Hgb Concent. 33.2 g/dL (32.2-35.5); Mean Platelet Volume 10.4 fL (9.4-12.3); Monocyte (Absolute #) 0.41 x10^3/uL (0.24-0.86); Monocytes % 7.6 % (4.7-12.5); Neutrophil % 72.4 % (34.0-71.1); Platelet Count 246 x10^3/uL (182-369); Red Blood Count 3.69 x10^6/uL (3.93-5.22); Red Cell Distribution Width 13.3 % (11.7-14.4); White Blood Count 5.4 x10^3/uL (3.98-10.04)
[2024-01-15] MEDS: Lopressor 50 MG PO SCH (09:41)
[2024-01-15] MEDS: ROCEPHIN 1 GM / 100 ML NaCl 1 GM/100 ML IVPB IV SCH (09:42)
[2024-01-15] MEDS: ENOXAPARIN SODIUM SQ SCH (09:44)
[2024-01-15] MEDS ORDERED: Klor Con PO SCH (10:00)
[2024-01-15] MEDS: Zithromax 500 MG/ 250 ML NaCl Premix 500 MG/250 ML IVPB IV SCH (10:28)
[2024-01-15 16:18] LABS: 027 TOX PROD PRESUMPTIVE NEGATIVE (NEGATIVE); TOXIGENIC C. DIFF ORG NEGATIVE (NEGATIVE)
[2024-01-15] MEDS: IMODIUM 2 MG PO PRN (17:34)
[2024-01-16 06:19] LABS: Absolute Neutrophil Ct (ANC) 3.11 x10^3/uL (1.56-6.13); BASOPHIL % 0.4 % (0.1-1.2); Basophil (Absolute #) 0.02 x10^3/uL (0.01-0.08); Eosinophil % 0.8 % (0.7-5.8); Eosinophil (Absolute #) 0.04 x10^3/uL (0.04-0.36); Hematocrit 33.1 % (34.1-44.9); Hemoglobin 10.7 g/dL (11.2-15.7); IMMATURE GRAN # 0.02 x10^3u/L (0.001-0.031); IMMATURE GRAN % 0.4 % (0.001-0.429); Lymphocyte (Absolute #) 1.59 x10^3/uL (1.18-3.74); Lymphocytes % 30.2 % (19.3-51.7); Mean Cell Volume 91.7 fL (79.4-94.8); Mean Corpuscular Hemoglobin 29.6 pg (25.6-32.2); Mean Corpuscular Hgb Concent. 32.3 g/dL (32.2-35.5); Mean Platelet Volume 9.8 fL (9.4-12.3); Monocyte (Absolute #) 0.48 x10^3/uL (0.24-0.86); Monocytes % 9.1 % (4.7-12.5); Neutrophil % 59.1 % (34.0-71.1); Platelet Count 270 x10^3/uL (182-369); Red Blood Count 3.61 x10^6/uL (3.93-5.22); Red Cell Distribution Width 13.2 % (11.7-14.4); White Blood Count 5.3 x10^3/uL (3.98-10.04)
[2024-01-16 06:41] LABS: ALBUMIN 3.7 g/dL (3.5-5.0); ANION GAP 12.2 MEQ/L (5-15); BILIRUBIN,TOTAL 0.6 mg/dL (0.2-1.3); Creatinine 1 0.65 mg/dL (0.52-1.04); Potassium 3.6 mmol/L (3.5-5.1)
--- NOTE | 2024-01-16 07:13 | PCM.DS ---
Discharge Summary Date of Admission: 01/14/24 18:18 Date of Discharge: 01/16/24 Admitting Physician: BJ MUJICA MD Primary Care Provider: NO FAMILY DOCTOR Allergies Allergies No Known Drug Allergies Allergy (Verified 01/14/24 15:45) Hospital Summary - Hospital Course Hospital Course: Ms Walls is a 58 year old female with a pmhx of tachyarrhythmias on metoprolol and hypertension who presented to ED 01/14/24 with a week history of subjective fever/chills, a dry-hacking cough and the sensation of palpitations/racing heart. Upon arrival vitals stable - patient was noted with spo2 levels dropping into the 80s and placed on 2L oxygen. PVCs on EKG but no ST elevations. Initial trops negative. CXR demonstrates subtle hazy right base interstitial alveolar opacities. Lab findings with mild leukocytosis and hypokalemia, TBILLI and AST also elevated. Respiratory panel negative . Patient given potassium, ceftriaxone, azithromycin, and duoneb in ED. Admit for pneumonia, hypokalemia. Dyspnea now improved and on RA. Declines nebulizer machine. Hypokalemia resolved. Advised holding HCTZ and maintain BP log until follow up with PCP. BP stable. Labs unremarkable. Stable for discharge with cefpodoxime. Discharge Note New Diagnosis: Pneumonia/hypokalemia New Medications: cefpodoxime/prednisone/mucinex- hold HCTZ Follow Up: PCP Results pending: Sputum/blood cult Latest Assessment & Plan (1) Pneumonia Current Visit: Yes Status: Acute Qualifiers: Pneumonia type: due to unspecified organism Laterality: right Lung location: lower lobe of lung Qualified Code(s): J18.9 - Pneumonia, unspecified organism Assessment & Plan: -CXR demonstrates subtle hazy right base interstitial alveolar opacities -Supplemental oxygen with goal spo2 >92% -ceftriaxone/azithromycin -received 1500mg of azith - can d/c -nebs/inh prn -prednisone 20mg bid Code(s): J18.9 - PNEUMONIA, UNSPECIFIED ORGANISM (2) Hypokalemia Current Visit: Yes Status: Acute Assessment & Plan: -potassium at 2.6 despite replenishment- 40 meq ordered this morning, will recheck in 2 hours -MG wnl -hold hctz -tele I spent 35 minutes [id number] with the patient on the day of discharge performing discharge exam, discussing hospital stay and discharge instructions with patient and caregivers, preparation of discharge records, prescriptions & referral forms and addressing any questions/concerns the patient had as docume nted above. - Vitals & Intake/Output Vital Signs: Vital Signs Temperature 98.6 F 01/16/24 04:00 Pulse Rate 80 01/16/24 04:00 Respiratory Rate 18 01/16/24 04:00 Blood Pressure 113/69 01/16/24 04:00 O2 Sat by Pulse Oximetry 95 01/16/24 04:00 Intake & Output: Intake & Output 01/13/24 01/14/24 01/15/24 01/16/24 11:59 11:59 11:59 11:59 Intake Total 2691 1540 Balance 2691 1540 Weight 88.8 kg - Lab Result Diagrams: 01/16/24 05:30 01/16/24 05:30 Lab Results-Last 24 Hrs: Lab Results-Last 24 Hours 01/15/24 01/15/24 01/15/24 Range/Units 07:39 09:04 14:47 WBC 5.4 (3.98-10.04) x10^3/uL RBC 3.69 L (3.93-5.22) x10^6/uL Hgb 11.0 L (11.2-15.7) g/dL Hct 33.1 L (34.1-44.9) % MCV 89.7 (79.4-94.8) fL MCH 29.8 (25.6-32.2) pg MCHC 33.2 (32.2-35.5) g/dL RDW 13.3 (11.7-14.4) % Plt Count 246 (182-369) x10^3/uL MPV 10.4 (9.4-12.3) fL Gran % 72.4 H (34.0-71.1) % Immature Gran % (Auto) 0.4 (0.001-0.429) % Nucleat RBC Rel Count 0.0 (0.00-0.2) % Eos # (Auto) 0.02 L (0.04-0.36) x10^3/uL Immature Gran # (Auto) 0.02 (0.001-0.031) x10^3u/L Absolute Lymphs (auto) 1.02 L (1.18-3.74) x10^3/uL Absolute Monos (auto) 0.41 (0.24-0.86) x10^3/uL Absolute Nucleated RBC 0.00 (0.00-0.012) x10^3u/L Lymphocytes % 19.0 L (19.3-51.7) % Monocytes % 7.6 (4.7-12.5) % Eosinophils % 0.4 L (0.7-5.8) % Basophils % 0.2 (0.1-1.2) % Absolute Granulocytes 3.90 (1.56-6.13) x10^3/uL Basophils # 0.01 (0.01-0.08) x10^3/uL Sodium (135-145) mmol/L Potassium 3.2 L D (3.5-5.1) mmol/L Chloride (98-107) mmol/L Carbon Dioxide (22-30) mmol/L Anion Gap (5-15) MEQ/L BUN (7-17) mg/dL Creatinine (0.52-1.04) mg/dL Estimated GFR ML/MIN Glucose (74-106) mg/dL Calcium (8.4-10.2) mg/dL Total Bilirubin (0.2-1.3) mg/dL AST (14-36) U/L ALT (0-35) U/L Alkaline Phosphatase (38-126) U/L Serum Total Protein (6.3-8.2) g/dL Albumin (3.5-5.0) g/dL C. difficile Screen NEGATIVE (NEGATIVE) C.difficile 027-NAP1-B1 PRESUMPTIVE NEGATIVE (NEGATIVE) 01/15/24 01/16/24 01/16/24 Range/Units 16:53 05:30 05:30 WBC 5.3 (3.98-10.04) x10^3/uL RBC 3.61 L (3.93-5.22) x10^6/uL Hgb 10.7 L (11.2-15.7) g/dL Hct 33.1 L (34.1-44.9) % MCV 91.7 (79.4-94.8) fL MCH 29.6 (25.6-32.2) pg MCHC 32.3 (32.2-35.5) g/dL RDW 13.2 (11.7-14.4) % Plt Count 270 (182-369) x10^3/uL MPV 9.8 (9.4-12.3) fL Gran % 59.1 (34.0-71.1) % Immature Gran % (Auto) 0.4 (0.001-0.429) % Nucleat RBC Rel Count 0.0 (0.00-0.2) % Eos # (Auto) 0.04 (0.04-0.36) x10^3/uL Immature Gran # (Auto) 0.02 (0.001-0.031) x10^3u/L Absolute Lymphs (auto) 1.59 (1.18-3.74) x10^3/uL Absolute Monos (auto) 0.48 (0.24-0.86) x10^3/uL Absolute Nucleated RBC 0.00 (0.00-0.012) x10^3u/L Lymphocytes % 30.2 (19.3-51.7) % Monocytes % 9.1 (4.7-12.5) % Eosinophils % 0.8 (0.7-5.8) % Basophils % 0.4 (0.1-1.2) % Absolute Granulocytes 3.11 (1.56-6.13) x10^3/uL Basophils # 0.02 (0.01-0.08) x10^3/uL Sodium 140 (135-145) mmol/L Potassium 3.5 3.6 (3.5-5.1) mmol/L Chloride 106 (98-107) mmol/L Carbon Dioxide 25 (22-30) mmol/L Anion Gap 12.2 (5-15) MEQ/L BUN 14 (7-17) mg/dL Creatinine 0.65 (0.52-1.04) mg/dL Estimated GFR 102.0 ML/MIN Glucose 99 (74-106) mg/dL Calcium 9.0 (8.4-10.2) mg/dL Total Bilirubin 0.60 (0.2-1.3) mg/dL AST 35 (14-36) U/L ALT 22 (0-35) U/L Alkaline Phosphatase 63 (38-126) U/L Serum Total Protein 7.0 (6.3-8.2) g/dL Albumin 3.7 (3.5-5.0) g/dL C. difficile Screen (NEGATIVE) C.difficile 027-NAP1-B1 (NEGATIVE) - Radiology Exams Ordered Rad Exams-Entire Visit: Radiology Procedures Category Date Time Status CHEST 1 VIEW (PORTABLE) Stat Exams 01/14/24 15:59 Completed - Procedures and Test Procedures and Tests throughout Hospitalization: Therapy Orders & Screens 01/14/24 16:22 Respiratory Therapy Assessment DAILY Comment: 01/14/24 18:28 Oxygen Nasal Cannula 2 lpm Comment: Respiratory Therapy Consult ONCE Comment: Reason For Exam: 01/14/24 19:59 ST Screen per Nursing Assess ONCE Comment: Protocol Order Physician Instructions: Greater than [address] Admission Screening Reason For Exam: Triggered on Admission Diagnosis: Hypokalemia, PNE, PVC CVA/Dyshpagia/Aphasia: No Cognitive Deficits: No Dehydration/Nutrition Deficit: No Reflux: No Oral-Motor Difficulties: No Pneumonia: Yes Halfway Resident: No Total Points: 5 01/14/24 21:20 Respiratory Therapy Consult ONCE Comment: Reason For Exam: Diagnosis: Hypokalemia, PNE, PVC 01/15/24 06:42 Flutter Therapy UD Comment: Diagnosis: Hypokalemia, PNE, PVC Discharge Exam General Appearance: no apparent distress Neurologic Exam: alert, oriented x 3, cooperative Eye Exam: PERRL Ears, Nose, Throat Exam: normal ENT inspection Neck Exam: normal inspection Respiratory Exam: crackles/rales Cardiovascular Exam: regular rate/rhythm, normal heart sounds Gastrointestinal/Abdomen Exam: soft, normal bowel sounds Pelvic Exam: deferred Rectal Exam: deferred Back Exam: normal inspection Extremity Exam: normal inspection Skin Exam: normal color Final Diagnosis/Problem List - Final Discharge Diagnosis/Problem (1) Pneumonia Current Visit: Yes Status: Acute Code(s): J18.9 - PNEUMONIA, UNSPECIFIED ORGANISM (2) Hypokalemia Current Visit: Yes Status: Resolved Code(s): E87.6 - HYPOKALEMIA (3) Essential (primary) hypertension Current Visit: Yes Status: Chronic Code(s): I10 - ESSENTIAL (PRIMARY) HYPERTENSION - Discharge Disposition: Home, Self-Care Condition: Stable Prescriptions: New Prednisone 20 mg [Deltasone 20 mg] 20 mg PO BID 5 Days #10 tablet Cefpodoxime Proxetil 200 mg [Vantin 200 mg] 200 mg PO BID 10 Days #20 tablet Guaifenesin [Mucinex] 600 mg PO BID 5 Days #10 tablet Continue Metoprolol Tartrate [Lopressor] 100 mg PO BID Discontinued Hydrochlorothiazide 25 mg [hydroDIURIL 25 MG] 25 mg PO DAILY Follow up with: HOSPITAL,'S [LOCATION] -
[2024-01-16 08:05] VITALS: O2SAT 95
[2024-01-16] MEDS: MOTRIN 600 MG PO PRN (09:01)
[2024-01-16] MEDS: DELTASONE 20 MG PO SCH (09:09)
[2024-01-16 12:13] VITALS: BP 108/55; PULSE 77; RESP 18; TEMP 97
== END 2024-01-16 13:14 | disposition home or self-care (01) ==
LOC: ED 15:41 → MED SURG 18:18
PROVIDERS: ADMIT Internal Medicine; ATTEND Internal Medicine
DX: J18.9 Pneumonia, unspecified organism (principal); E87.6 Hypokalemia; I10 Essential (primary) hypertension; R00.0 Tachycardia, unspecified; Z79.899 Other long term (current) drug therapy
CPT/HCPCS: 0241U; 36000; 36415; 71045; 80053; 80069; 83605; 83735; 83880; 84132; 84484; 85025; 87040; 87493; 93005; 93268; 94640; 94667; 94668; 94760; 94762; 96365; 96367; 99285; G0378; Q3014; J0456; J0696; J1650; J3480; A9270-GY